=== PATIENT | female | born 1955 | race Caucasian/White ===

== ENCOUNTER 2022-11-17 05:39 | Day surgery (SDC) | payer MEDICARE, MEDICAID ==
[~2022-11-17] VITALS: Ht 152.4 cm; Wt 47.7 kg
[~2022-11-17 05:39] MED LIST: ALEN70TA65 PO; AMLO-257 PO; ASPI-1444 PO; ATOR40TA28 PO; CALC-789 PO; CYCLOPENTOLATE HCL 1% 2 ML OPHTHALMIC SOLUTION ONE; EMPA10TA3 PO; KETOROLAC TROMETHAMINE 0.5% 5 ML OPHTHALMIC SOLUTION ONE; LOSA-382 PO; METF-1211 PO; METO25XL PO; MOXIFLOXACIN HCL 0.5% 3 ML OPHTHALMIC SOLUTION ONE; PHENYLEPHRINE HCL 2.5% 2 ML OPHTHALMIC SOLUTION ONE; RINGERS SOLUTION,LACTATED 500 ML IV ONE; SITA100 PO; TETRACAINE HCL/PF 0.5% 4 ML OPHTHALMIC SOLUTION ONE; TROPICAMIDE 1% 2 ML OPHTHALMIC SOLUTION ONE
[2022-11-17] MEDS ORDERED: MIDAZOLAM HCL 2 MG/2 ML VIAL IVP ONE (05:40)
[2022-11-17] MEDS ORDERED: FentaNYL CITRATE PF 100 MCG/2 ML VIAL IVP ONE (05:40)
[2022-11-17] MEDS ORDERED: RINGERS SOLUTION,LACTATED 500 ML IV ONE (06:00)
[2022-11-17] MEDS ORDERED: TETRACAINE HCL/PF 0.5% 4 ML OPHTHALMIC SOLUTION OD ONE (06:30)
[2022-11-17] MEDS ORDERED: PROPARACAINE HCL 0.5% 15 ML OPHTHALMIC SOLUTION OD ONE (06:45)
[2022-11-17] MEDS: CYCLOPENTOLATE HCL 1% 2 ML OPHTHALMIC SOLUTION OD SCH ×3 (06:53→07:11)
[2022-11-17] MEDS: PHENYLEPHRINE HCL 2.5% 2 ML OPHTHALMIC SOLUTION OD SCH ×3 (06:54→07:10)
[2022-11-17] MEDS: KETOROLAC TROMETHAMINE 0.5% 5 ML OPHTHALMIC SOLUTION OD SCH ×3 (06:57→07:11)
[2022-11-17] MEDS: TROPICAMIDE 1% 2 ML OPHTHALMIC SOLUTION OD SCH ×3 (06:58→07:11)
[2022-11-17] MEDS: MOXIFLOXACIN HCL 0.5% 3 ML OPHTHALMIC SOLUTION OD SCH ×3 (06:59→07:12)
[2022-11-17] MEDS: TETRACAINE HCL/PF 0.5% 4 ML OPHTHALMIC SOLUTION OD SCH ×3 (06:59→07:10)
[2022-11-17 07:01] LABS: GLUCOMETER DEV NAME(LOC) SDS.; GLUCOSE,POINT OF CARE 123 MG/DL (70-110)
[2022-11-17] MEDS ORDERED: POVIDONE-IODINE 5% 30 ML OPHTHALMIC SOLUTION ONE (12:16)
[2022-11-17] MEDS ORDERED: HYALURONATE SOD 8.5MG/0.85ML 10 MG/ML SYRINGE IO ONE (12:16)
[2022-11-17] MEDS ORDERED: PrednisoLONE ACETATE 1% 5 ML OPHTHALMIC SUSPENSION ONE (12:16)
[2022-11-17] MEDS ORDERED: LIDOCAINE/PF 1% 2 ML VIAL ONE (12:16)
[2022-11-17] MEDS ORDERED: BALANCED SALT 15 ML OPHTHALMIC IRRIG.SOLN ONE (12:16)
[2022-11-17] MEDS ORDERED: EPINEPHrine 1:1,000 [1 MG/ML] VIAL ONE (12:16)
== END 2022-11-17 08:45 | disposition home or self-care (01) ==
LOC: SURGERY 05:39
PROVIDERS: ATTEND Ophthalmology
DX: E11.36 Type 2 diabetes mellitus with diabetic cataract (principal); H25.11 Age-related nuclear cataract, right eye; I10 Essential (primary) hypertension; Z79.899 Other long term (current) drug therapy
CPT/HCPCS: 66984; 82962; 93005; J0171; J3010; J3490; J2250; Q9967; J7120; V2632